=== PATIENT | female | born 1990 | race Two or more races ===

== ENCOUNTER 2024-09-11 18:53 | Emergency (ER) | payer MEDICAID, OTHER ==
[~2024-09-11] VITALS: Ht 162.6 cm; Wt 122.5 kg
[2024-09-11 19:26] LABS: Basophils # (auto) 0 10 ^3/uL (0-0.2); Basophils % (auto) 0.2 % (0.0-2.0); Eosinophils # (auto) 0.1 10 ^3/uL (0-0.8); Eosinophils % (auto) 1.5 % (0.0-7.0); Hematocrit 40.9 % (36.0-46.0); Lymphocytes % (auto) 26.9 % (10.0-50.0); Mean Corpuscular Hemoglobin 30.3 pg (28.0-32.0); Mean Corpuscular Hgb Conc. 34.3 g/dL (32.0-36.0); Mean Corpuscular Volume 88.4 fL (80.0-100.0); Monocytes # (auto) 0.7 10 ^3/uL (0-1.3); Monocytes % (auto) 8.9 % (0.0-12.0); Neutrophils # (auto) 4.6 10 ^3/uL (1.6-8.6); Neutrophils % (auto) 62.5 % (37.0-80.0); Platelet Count (auto) 296 10^3/uL (140-450); Red Blood Cells 4.63 10^6/uL (4.0-5.20); White Blood Cell 7.4 10^3/uL (4.4-10.8)
[2024-09-11 19:58] LABS: INR 1.12 (0.9-1.15); Partial Thromboplastin Time 34.2 SEC (24.5-34.5); Prothrombin Time 11.8 sec (9.3-11.8)
[2024-09-11 20:06] LABS: Alanine Aminotransferase 16 U/L (7-40); Albumin 4.5 g/dL (3.2-4.8); Alkaline Phosphatase 119 U/L (46-116); Anion Gap 6 (5-15); Aspartate Aminotransferase 12 U/L (13-40); Blood Urea Nitrogen 12 mg/dL (9-23); Calcium 9.2 mg/dL (8.7-10.4); Carbon Dioxide 25 mmol/L (20-31); Chloride 108 mmol/L (98-107); Glucose 97 mg/dL (74-106); Potassium 4.2 mmol/L (3.5-5.1); Sodium 139 mmol/L (136-145)
[2024-09-11 20:07] LABS: Bilirubin, Total 0.4 mg/dL (0.2-1.0)
[2024-09-11 20:10] LABS: Urine Bacteria FEW /hpf (None Seen); Urine Blood Negative /uL (Negative); Urine Clarity Clear (Clear); Urine Color Yellow (Yellow); Urine Mucus FEW (None Seen); Urine Protein, UAD Negative (Negative); Urine Specific Gravity 1.032 (1.001-1.035); Urine Urobilinogen Normal (Negative); Urine WBC 5 /hpf (0 - 5); Urine pH 5.5 (5.0-9.0)
[2024-09-11] MEDS: NITROGLYCERIN 0.4 MG SL TAB SL ONE (20:15)
[2024-09-11 21:15] VITALS: PULSE 111; RESP 13; O2SAT 97
[2024-09-11 21:45] VITALS: BP 121/64; PULSE 100; RESP 14; TEMP 97.9; O2SAT 97
[2024-09-11] MEDS: ASPirin 325 MG TAB PO ONE (21:46)
[2024-09-11 22:05] VITALS: PULSE 99
== END 2024-09-11 22:47 | disposition left against medical advice (07) ==
LOC: ER 18:53
DX: R07.89 Other chest pain (principal); N39.0 Urinary tract infection, site not specified
CPT/HCPCS: 36415; 71045; 80053; 81001; 83690; 83880; 84484; 85025; 85379; 85610; 85730; 93005